=== PATIENT | female | born 1955 | race Caucasian/White ===

== ENCOUNTER → 2020-10-19 12:19 | Outpatient (BNVA) | payer OTHER, SELFPAY | PROVIDERS: PCP Family Medicine; Visit Provider Family Medicine Adult Medicine | DX: M54.16 Radiculopathy, lumbar region (principal) | CPT/HCPCS: 99212 ==

== ENCOUNTER → 2021-01-18 09:33 | Outpatient (BNVA) | payer MEDICARE, SELFPAY | PROVIDERS: PCP Family Medicine; Referring Provider Family Medicine; Visit Provider Family Medicine Adult Medicine | DX: M54.16 Radiculopathy, lumbar region (principal); Z79.899 Other long term (current) drug therapy | CPT/HCPCS: 99212 ==

== ENCOUNTER → 2021-03-15 08:18 | Outpatient (BNVA) | payer MEDICARE, SELFPAY | PROVIDERS: PCP Family Medicine; Visit Provider Family Medicine Adult Medicine | DX: M54.16 Radiculopathy, lumbar region (principal) | CPT/HCPCS: Q3014 ==

== ENCOUNTER → 2021-03-26 13:35 | Outpatient (BNVA) | payer MEDICARE, SELFPAY | PROVIDERS: PCP Family Medicine; Visit Provider Anesthesiology | DX: M54.5 Low back pain (principal) | CPT/HCPCS: 99212 ==

== ENCOUNTER → 2021-05-15 08:00 | Outpatient (BNVA) | payer MEDICARE, SELFPAY | PROVIDERS: PCP Family Medicine; Visit Provider Family Medicine Adult Medicine | DX: M54.16 Radiculopathy, lumbar region (principal) | CPT/HCPCS: 99212 ==

== ENCOUNTER 2021-05-29 05:46 | Outpatient (REF) | payer MEDICARE, SELFPAY ==
--- NOTE | ~2021-05-29 | FL_ITS ---
EXAMINATION: XR FLUOROSCOPY WITH IMAGES CLINICAL INFORMATION: Low back pain COMPARISON: None. TECHNIQUE: Fluoroscopy performed by Bing Webb. Fluoroscopy time: 0.9 minutes DAP: 6.02 Gycm2 Images: 9 FINDINGS: Number needles positioned along the posterior iliac crest with contrast opacifying the soft tissues. No gross bony abnormality seen. FL/FL guidance in treatment room IMPRESSION: Fluoroscopy was provided to Bing Webb for pain management.
== END 2021-05-29 05:47 | disposition home or self-care (01) ==
LOC: HO.RADIR 05:46
PROVIDERS: Visit Provider Anesthesiology
DX: M54.5 Low back pain (principal)
CPT/HCPCS: 64450; Q9967

== ENCOUNTER 2021-06-12 09:50 | Outpatient (REF) | payer MEDICARE, SELFPAY ==
[2021-06-12 12:09] LABS: MANUAL DIFF FLAG NO
[2021-06-12 12:12] LABS: Basophils Absolute Auto 0.1 X10*3/uL (0.0-0.2); Basophils Percent Auto 0.7 % (0-2); Eosinophils Absolute Auto 0.2 X10*3/uL (0.0-0.4); Eosinophils Percent Auto 2.7 % (0-4); Hemoglobin 13.1 g/dl (12.0-16.0); Imm Gran Abs Auto 0.02 X10*3/uL (0.00-0.03); Imm Gran Pct Auto 0.3 % (0.0-0.4); Lymphocytes Absolute Auto 2.6 X10*3/uL (1.2-4.9); Lymphocytes Percent Auto 38.1 % (20-40); Mean Corpuscular Hemoglobin 31.3 pg (27.0-33.0); Mean Corpuscular Volume 97.9 fL (80-98); Mean Platelet Volume 11.1 fL (9.4-12.3); Monocytes Absolute Auto 0.6 X10*3/uL (0.1-1.2); Monocytes Percent Auto 9.1 % (2-11); Neutrophils Absolute Auto 3.3 X10*3/uL (2.0-8.3); Neutrophils Percent Auto 49.1 % (45-73); Platelet Count 236 X10*3/uL (160-400); Red Blood Count 4.19 X10*6/uL (4.20-5.50); Red Cell Distribution Width 14.7 % (11.0-16.0); White Blood Count 6.8 X10*3/uL (4.8-10.8)
[2021-06-12 12:30] LABS: Alanine Aminotransferase 15 U/L (0-31); Albumin Level 4.3 g/dL (3.5-5.0); Alkaline Phosphatase 80 U/L (39-117); Anion Gap 12 (12-20); Aspartate Amino Transferase 20 U/L (5-31); Bilirubin Total 0.4 mg/dL (0.0-1.0); Blood Urea Nitrogen 24 mg/dL (9-16); Calcium 9.6 mg/dL (8.4-10.2); Carbon Dioxide 30 mmol/L (22-29); Chloride 105 mmol/L (96-108); Cholesterol 209 mg/dL; Estimated Glomerular Filt Rate 41; Glucose Fasting 101 mg/dL (60-99); HDL Cholesterol 68 mg/dL; LDL Cholesterol Calculated 121 mg/dl; Potassium 4.1 mmol/L (3.3-5.1); Sodium 143 mmol/L (135-145); Total Protein 6.6 g/dL (6.5-8.0); Triglycerides 102 mg/dL
[2021-06-12 12:52] LABS: Thyroid Stimulating Hormone 13.35 uIU/mL (0.32-4.0)
== END 2021-06-12 09:51 | disposition home or self-care (01) ==
LOC: HO.LAB 09:50
PROVIDERS: PCP Family Medicine; Referring Provider Family Medicine; Visit Provider Nurse Practitioner Family
DX: Z00.00 Encounter for general adult medical examination without abnormal findings (principal); M54.5 Low back pain; G89.4 Chronic pain syndrome; E03.9 Hypothyroidism, unspecified; K46.9 Unspecified abdominal hernia without obstruction or gangrene; Z79.899 Other long term (current) drug therapy; Z79.891 Long term (current) use of opiate analgesic; Z45.42 Encounter for adjustment and management of neurostimulator
CPT/HCPCS: 36415; 80053; 80061; 84443; 85025; 99212

== ENCOUNTER 2021-06-15 08:28 | Outpatient (REF) | payer MEDICARE, SELFPAY ==
--- NOTE | ~2021-06-15 | US_ITS ---
EXAMINATION: US ABDOMEN LIMITED CLINICAL INFORMATION: Unspecified abdominal hernia without obstruction. COMPARISON: None TECHNIQUE: Real-time imaging of the abdominal wall of the left lower quadrant. FINDINGS: There is a hypoechoic area seen measuring 1.5 x 0.5 x 1 cm in transverse AP and longitudinal dimension probably representing a small hernia. The neck measures 4 mm. No peristalsing bowel is seen and this probably contains fat. US/US abdomen limited IMPRESSION: Probable left lower quadrant abdominal wall hernia seen.
== END 2021-06-15 08:29 | disposition home or self-care (01) ==
LOC: HO.US 08:28
PROVIDERS: Visit Provider Family Medicine
DX: K46.9 Unspecified abdominal hernia without obstruction or gangrene (principal)
CPT/HCPCS: 76705

== ENCOUNTER → 2021-06-21 13:21 | Outpatient (BNVA) | payer MEDICARE, SELFPAY | PROVIDERS: PCP Family Medicine; Referring Provider Family Medicine; Visit Provider Surgery | DX: K43.2 Incisional hernia without obstruction or gangrene (principal) | CPT/HCPCS: 99202 ==

== ENCOUNTER → 2021-07-10 11:31 | Outpatient (BNVA) | payer MEDICARE, SELFPAY | PROVIDERS: PCP Family Medicine; Visit Provider Family Medicine Adult Medicine | DX: M54.16 Radiculopathy, lumbar region (principal); Z79.891 Long term (current) use of opiate analgesic | CPT/HCPCS: 99212 ==

== ENCOUNTER 2021-07-16 05:55 | Day surgery (SDC) | payer MEDICARE, SELFPAY ==
--- NOTE | 2021-07-05 | ECG_ITS ---
Test Reason : CAD PACER SSS Blood Pressure : / mmHG Vent. Rate : 080 BPM Atrial Rate : 080 BPM P-R Int : 158 ms QRS Dur : 092 ms QT Int : 408 ms P-R-T Axes : 072 -14 021 degrees QTc Int : 470 ms Atrial-paced rhythm Abnormal ECG No previous ECGs available Referred By: Maia Tellez Electronically Signed By:BIANCA ROMERO
[2021-07-05 12:05] VITALS: BP 144/67; PULSE 88; RESP 20; O2SAT 95; BMI 35.5
--- NOTE | 2021-07-05 12:44 | HO.ANESPROP2 ---
Documented by User: Maia Tellez NP 07/13/21 08:30 HPI - Anesthesia Eval Consult details Narrative: 65yo F for Left Lower Abdomen Incisional Hernia Repair Routine cardiology visit 08/2020 stable Pacer in situ for SSS - battery change 08/2020 Cystostomy in situ d/t bladder CA Hands and feet swollen early June d/t med rx (belbuca). Improved when reverted to Suboxone for low back pain. Suboxone daily - Currently on 20mg daily. Will contact Dr Barclay regarding plan to wean to 8mg daily preop Spinal stim in situ, but not functioning. Routine cardiac visit 08/2020, stable for 1 year f/u. Pt without c/o CP/SOB at [facility]. Appears euvolemic. Lungs clear. Minimal swelling in feet d/t belbuca rxn improved from earlier this month. h/o of DVT but no anticoag required for years No record of [place]CHO [place] [facility] [place] or [facility] Case reviewed with Dr Rachel HUBER Active Problems Active Problems: All Active Problems (Updated 07/05/21 @ 12:40 by Leanne Kitchen RN) Left lumbar radiculopathy (Acute) Allergic reaction (Acute) Depression with anxiety (Acute) Essential hypertension (Acute) Right ankle pain (Acute) H/O: CVA (cerebrovascular accident) (Acute) Factor V Leiden (Acute) H/O deep venous thrombosis (Acute) H/O: CVA (cerebrovascular accident) (Acute) History of myocardial infarction (Acute) CAD (coronary artery disease) (Acute) H/O carcinoma of bladder (Acute) Bradycardia (Acute) Artificial pacemaker (Acute) Frequent falls (Acute) Hernia (Acute) Infection of stoma of digestive tract (Acute) Colostomy care (Acute) Battery end of life of spinal cord stimulator (Acute) Incisional hernia (Acute) Hypothyroid (Acute) Low back pain (Acute) Past Medical History Medical History CAD (coronary artery disease) CHF (congestive heart failure) COVID-19 vaccine series completed CVA (cerebral vascular accident) Depression DVT (deep venous thrombosis) Elevated cholesterol Factor V Leiden History of postoperative nausea and vomiting HTN (hypertension) Hx of bladder cancer Hx of sick sinus syndrome Hypothyroid Ileostomy, has currently Left lumbar radiculopathy Low back pain Lumbago with sciatica, left side Family History Family history of problems with anesthesia: No Surgical History Surgical History Cardiac pacemaker History of nephrectomy, left Hx of total cystectomy S/P insertion of spinal cord stimulator History of Problems with Anesthesia: Yes (PONV) Social History Social History Household Members Other:: alone Housing: Apartment Are you a primary hospice care consultant to a significant other at home: No Do you presently have visiting nurse or other home services: Yes (homemaker twice/week) Alcohol intake: never Patient Tobacco Use Status: Never used Tobacco Use of substances other than those prescribed or required for medical reasons: No Substance Use Type Other:: taking suboxone tablet daily for pain control Have you been hit, kicked, punched, or otherwise hurt by someone within the past year? If so, by whom?: No Are you DNR?: Yes Advance Directives Information Provided: Yes (states is daughter) Advance Directives on File: No Recently lost weight without trying: No Eating poorly because of decreased appetite: No Nutrition Risks: No Nutritional Risk Poor oral hygiene: No Current occupational status: retired Narrative Narrative: No recent illness. No CP/SOB with limited activity d/t back pain. Meds Allergies Allergy/AdvReac Type Severity Reaction Status Date / Time almond Allergy Intermediate swollen Verified 07/16/21 06:59 throat buprenorphine [From Belbuca] Allergy Intermediate pain/swelling Verified 07/16/21 06:59 feet/ankles(took from 06/25/21 to 07/03/21) cephalexin [Keflex] Allergy Intermediate hives Verified 07/16/21 06:59 morphine Allergy Intermediate Vomiting Verified 07/16/21 06:59 silk Allergy Intermediate Rash Verified 07/16/21 06:59 Penicillins AdvReac Intermediate Nausea Verified 07/16/21 06:59 Home Medications Medication Instructions Recorded Confirmed Last Taken Type cyclosporine 0.05 % eye drops in a 1 drp OPHTHALMIC (EYE) BID 08/19/20 07/10/21 Unknown History dropperette naloxone 4 mg/actuation nasal 4 mg INTRANASAL ONCE PRN 07/04/21 07/10/21 Unknown History spray (Narcan) buprenorphine 8 mg-naloxone 2 mg 0.5 tab SUBLINGUAL QPM 08/19/21 08/24/21 08/28/21 History sublingual tablet buprenorphine 8 mg-naloxone 2 mg 1 tab SUBLINGUAL BID 07/05/21 07/10/21 Unknown History sublingual tablet Exam Exam Date and Time: July 05, 2021 1244 Height,Weight and Vital Signs: Height 5 ft 7 in Weight 103 kg Last Vital Signs Pulse 88 07/05/21 12:05 Resp 20 07/05/21 12:05 BP 144/67 H 07/05/21 12:05 Pulse Ox 95 07/05/21 12:05 Pertinent Lab Results Pertinent Lab Results: Laboratory Tests 06/12/21 06/12/21 11:52 11:52 WBC 6.8 Hgb 13.1 Hct 41.0 Plt Count 236 Sodium 143 Potassium 4.1 Chloride 105 Carbon Dioxide 30 H BUN 24 H Creatinine 1.30 Narrative Narrative: EKG 07/05/21 Vent. Rate : 080 BPM ? ? Atrial Rate : 080 BPM ?? P-R Int : 158 ms? QRS Dur : 092 ms ? ? QT Int : 408 ms ? ? ? P-R-T Axes : 072 -14 021 degrees ?? QTc Int : 470 ms ? Atrial-paced rhythm Abnormal ECG No previous ECGs available Pacer Interr 05/2021 Medtronic AAIR-DDDR 70/120 bmp APaced 73.3% VPaced 0% Battery life 12.9years Device functioning appropriately Airway Mallampati Class: I (Small mouth) TM Dist: >3cm Neck ROM: Full Loose/Missing/Broken Teeth: No Heart: RRR, L chest pacer Lungs: CTAB Assessment and Plan Assessment Anesthesia Assessment: Anesthesia Plan Discussed and PAT Visit Final Anesthetic Review Family History of Problems with Anesthesia: No History of Problems with Anesthesia: Yes (PONV) Documented by User: Nayely Sethi MD 07/16/21 07:18 [facility] Past Medical History Medical History CAD (coronary artery disease) CHF (congestive heart failure) COVID-19 vaccine series completed CVA (cerebral vascular accident) Depression DVT (deep venous thrombosis) Elevated cholesterol Factor V Leiden History of postoperative nausea and vomiting HTN (hypertension) Hx of bladder cancer Hx of sick sinus syndrome Hypothyroid Ileostomy, has currently Left lumbar radiculopathy Low back pain Lumbago with sciatica, left side Surgical History Surgical History Cardiac pacemaker History of nephrectomy, left Hx of total cystectomy S/P insertion of spinal cord stimulator Social History Social History Household Members Other:: alone Housing: Apartment Are you a primary hospice care consultant to a significant other at home: No Do you presently have visiting nurse or other home services: Yes (homemaker twice/week) Alcohol intake: never Patient Tobacco Use Status: Never used Tobacco Use of substances other than those prescribed or required for medical reasons: No Substance Use Type Other:: taking suboxone tablet daily for pain control Have you been hit, kicked, punched, or otherwise hurt by someone within the past year? If so, by whom?: No Are you DNR?: Yes Advance Directives Information Provided: Yes (states is daughter) Advance Directives on File: No Recently lost weight without trying: No Eating poorly because of decreased appetite: No Nutrition Risks: No Nutritional Risk Poor oral hygiene: No Current occupational status: retired Meds Allergies Allergy/AdvReac Type Severity Reaction Status Date / Time almond Allergy Intermediate swollen Verified 07/16/21 06:59 throat buprenorphine [From Belbuca] Allergy Intermediate pain/swelling Verified 07/16/21 06:59 feet/ankles(took from 06/25/21 to 07/03/21) cephalexin [Keflex] Allergy Intermediate hives Verified 07/16/21 06:59 morphine Allergy Intermediate Vomiting Verified 07/16/21 06:59 silk Allergy Intermediate Rash Verified 07/16/21 06:59 Penicillins AdvReac Intermediate Nausea Verified 07/16/21 06:59 Home Medications Medication Instructions Recorded Confirmed Last Taken Type cyclosporine 0.05 % eye drops in a 1 drp OPHTHALMIC (EYE) BID 08/19/20 07/10/21 Unknown History dropperette naloxone 4 mg/actuation nasal 4 mg INTRANASAL ONCE PRN 07/04/21 07/10/21 Unknown History spray (Narcan) buprenorphine 8 mg-naloxone 2 mg 0.5 tab SUBLINGUAL QPM 07/05/21 07/10/21 07/14/21 History sublingual tablet buprenorphine 8 mg-naloxone 2 mg 1 tab SUBLINGUAL BID 07/05/21 07/10/21 Unknown History sublingual tablet Exam Airway Mallampati Class: II (Small mouth) Assessment and Plan Final Anesthetic Review NPO: Yes ASA Class: III Final Preanesthetic Review: No Changes in Pt Med Stat, Meds/Allgs Chart Reviewed and Consent Obtained/Reviewed Patient Risk: Intermediate Procedure Risk: Intermediate Anesthetic Plan Anesthetic Plan: GA Disposition: Standard PACU
[2021-07-16] VITALS (15 sets, daily range): BP systolic 94–162; BP diastolic 54–92; PULSE 70–78; RESP 16–20; TEMP 36.7–37.2; O2SAT 91–96
[2021-07-16] MEDS: Scopolamine 1.5 MG PATCH.TD.3 TRANSDERMA (06:24)
[2021-07-16] MEDS: vancomycin HCL 1,000 MG in 0.9 % Sodium Chloride 250 ML 270 MG IV (06:50)
[2021-07-16] MEDS: Lactated Ringers 1,000 ML 100 ML IVCONT (06:57)
--- NOTE | 2021-07-16 08:53 | MHC.SHP ---
Pre-Procedural Eval Section A Date of Service: 07/16/21 The patient is an INPATIENT: No Changes since office visit: Yes Patient answered all questions; No Cold of Flu in the past 2 weeks, No New Medical Problems and No Changes in Medication Section B Chief Complaint: Incisional Hernia Allergies: Allergies Allergy/AdvReac Type Severity Reaction Status Date / Time almond Allergy Intermediate swollen Verified 07/16/21 06:59 throat buprenorphine [From Belbuca] Allergy Intermediate pain/swelling Verified 07/16/21 06:59 feet/ankles(took from 06/25/21 to 07/03/21) cephalexin [Keflex] Allergy Intermediate hives Verified 07/16/21 06:59 morphine Allergy Intermediate Vomiting Verified 07/16/21 06:59 silk Allergy Intermediate Rash Verified 07/16/21 06:59 Penicillins AdvReac Intermediate Nausea Verified 07/16/21 06:59 Plan Diagnosis/Plan: Unchanged I have reviewed the history and physical and performed a pertinent physical examination on my patient. No changes have occurred unless specified.
--- NOTE | 2021-07-16 08:54 | W.PM.OPN ---
Operative Note Operative Note Date of Service: 07/16/21 Narrative: Preoperative diagnosis: Incisional hernia left lower quadrant Postoperative diagnosis: Same Procedure: Repair of incisional hernia left lower quadrant with mesh Surgeon: Hermelindo Weaver MD Staff Anesthesiologist: Yarelis Gill PA-C Anesthesia: General ET Indications for procedure: 65-year-old male patient presenting with a previous urostomy in the left lower quadrant now with a lump in the left lower quadrant suggestive of an incisional hernia. The hernia increases in size with lifting and reduces with light pressure. Operative findings: Incisional hernia left lower quadrant containing omental fat Specimen: Lipoma from hernia sac Estimated blood loss: 5 mL Complications: None Procedure details: Patient was brought to the OR placed in a supine position. After administering general anesthesia the patient's abdomen was prepped with ChloraPrep and draped in a sterile fashion. A surgical time-out was called the consent confirmed. Patient received preoperative antibiotics and Venodyne boots were in place. Local anesthesia consisting of 0.25% Sensorcaine with epinephrine was then infiltrated in the left lower quadrant and transverse fashion. Transverse incision was then created with a scalpel carried out through subcutaneous tissue. Hernia sac was identified dissected down past the external and internal oblique muscles. Hernia defect was noted laterally as well. The sac was dissected down to the preperitoneal space. The lipoma within the hernia sac was excised and the contents reduced. The preperitoneal space was then created with a combination of blunt and electrocautery dissection. An 8 cm round Ventralex mesh was then obtained. This was placed in the preperitoneal space and secured in 4 quadrants using a 1. Tycron suture. Fascia was then closed over the mesh using a running 0 Polysorb suture in 2 layers to include the internal oblique and external oblique fascia is. Local anesthesia was then infiltrated in the muscle and subcutaneous tissue. Wounds were irrigated with saline solution and suctioned dry. Lidia's fascia was reapproximated using interrupted 3-0 Polysorb sutures. Dermis was then reapproximated using interrupted 3-0 Polysorb sutures. Skin was closed using a running subcuticular 4-0 Polysorb suture. Steri-Strips 2 x 2 gauze and Tegaderm were then applied. The patient tolerated the procedure well. Sponge, instrument, and needle counts reported as correct. The patient was transferred to PACU in stable condition.
[2021-07-16] MEDS: oxyCODONE HCl Immed Release 5 MG TABLET PO (09:25)
[2021-07-16] MEDS: fentaNYL citrate/PF 100 MCG/2 ML VIAL 50 MCG IVPUSH ×4 (09:27→09:55)
[2021-07-16] MEDS: Ketorolac Tromethamine 15 MG/ML VIAL IVPUSH (09:33)
== END 2021-07-16 11:15 | disposition home or self-care (01) ==
PROVIDERS: PCP Family Medicine; Visit Provider Surgery
PROC: (CPT 49560; principal; 2021-07-16 07:30)
DX: K43.2 Incisional hernia without obstruction or gangrene (principal); D17.5 Benign lipomatous neoplasm of intra-abdominal organs; I69.14 Monoplegia of lower limb following nontraumatic intracerebral hemorrhage; I69.151 Hemiplegia and hemiparesis following nontraumatic intracerebral hemorrhage affecting right dominant side; I50.9 Heart failure, unspecified; Z95.0 Presence of cardiac pacemaker; I11.0 Hypertensive heart disease with heart failure; Z86.718 Personal history of other venous thrombosis and embolism; Z85.51 Personal history of malignant neoplasm of bladder; Z93.2 Ileostomy status; Z79.899 Other long term (current) drug therapy; Z88.0 Allergy status to penicillin; Z88.1 Allergy status to other antibiotic agents; Z88.8 Allergy status to other drugs, medicaments and biological substances
CPT/HCPCS: 49560; 49568; 88304; 93005; C1781; J0131; J1100; J1885; J2250; J2405; J3010; J3370

== ENCOUNTER → 2021-07-24 10:14 | Outpatient (BNVA) | payer MEDICARE, SELFPAY | PROVIDERS: PCP Family Medicine; Referring Provider Family Medicine; Visit Provider Surgery | DX: Z48.815 Encounter for surgical aftercare following surgery on the digestive system (principal); Z87.19 Personal history of other diseases of the digestive system | CPT/HCPCS: 99212 ==

== ENCOUNTER 2021-07-25 10:02 | Outpatient (REF) | payer MEDICARE, SELFPAY ==
[2021-07-25 13:55] LABS: Alanine Aminotransferase 12 U/L (0-31); Albumin Level 4.4 g/dL (3.5-5.0); Alkaline Phosphatase 93 U/L (39-117); Anion Gap 14 (12-20); Aspartate Amino Transferase 13 U/L (5-31); Bilirubin Total 0.5 mg/dL (0.0-1.0); Blood Urea Nitrogen 31 mg/dL (9-16); Calcium 10.2 mg/dL (8.4-10.2); Carbon Dioxide 29 mmol/L (22-29); Chloride 105 mmol/L (96-108); Estimated Glomerular Filt Rate 33; Glucose Fasting 109 mg/dL (60-99); Potassium 4.3 mmol/L (3.3-5.1); Sodium 144 mmol/L (135-145); Total Protein 6.8 g/dL (6.5-8.0)
[2021-07-25 14:17] LABS: Free T4 (Free Thyroxine) 0.92 ng/dL (0.71-1.85)
== END 2021-07-25 10:03 | disposition home or self-care (01) ==
LOC: HO.WFDLDS 10:02
PROVIDERS: Visit Provider Family Medicine
DX: Z00.00 Encounter for general adult medical examination without abnormal findings (principal); E03.9 Hypothyroidism, unspecified
CPT/HCPCS: 36415; 80053; 84439

== ENCOUNTER → 2021-08-07 12:10 | Outpatient (BNVA) | payer MEDICARE, SELFPAY | PROVIDERS: PCP Family Medicine; Visit Provider Family Medicine Adult Medicine | DX: Z51.81 Encounter for therapeutic drug level monitoring (principal); M54.16 Radiculopathy, lumbar region | CPT/HCPCS: 99212 ==

== ENCOUNTER → 2021-08-30 09:55 | Outpatient (BNVA) | payer MEDICARE, SELFPAY | PROVIDERS: PCP Family Medicine; Referring Provider Family Medicine; Visit Provider Surgery | DX: K40.90 Unilateral inguinal hernia, without obstruction or gangrene, not specified as recurrent (principal); I25.10 Atherosclerotic heart disease of native coronary artery without angina pectoris; I11.0 Hypertensive heart disease with heart failure; I50.9 Heart failure, unspecified; E78.00 Pure hypercholesterolemia, unspecified; M54.42 Lumbago with sciatica, left side; D68.51 Activated protein C resistance; Z95.0 Presence of cardiac pacemaker; Z90.5 Acquired absence of kidney; Z88.0 Allergy status to penicillin; Z91.018 Allergy to other foods; T40.2X5A Adverse effect of other opioids, initial encounter; T40.495A Adverse effect of other synthetic narcotics, initial encounter; T36.1X5A Adverse effect of cephalosporins and other beta-lactam antibiotics, initial encounter; T36.0X5A Adverse effect of penicillins, initial encounter | CPT/HCPCS: 99212 ==

== ENCOUNTER → 2021-09-04 11:28 | Outpatient (BNVA) | payer MEDICARE, SELFPAY | PROVIDERS: PCP Family Medicine; Visit Provider Family Medicine Adult Medicine ==

== ENCOUNTER → 2021-09-26 08:59 | Outpatient (BNVA) | payer MEDICARE, SELFPAY | PROVIDERS: PCP Family Medicine; Visit Provider Anesthesiology | DX: G58.8 Other specified mononeuropathies (principal); M54.50 Low back pain, unspecified; Z96.82 Presence of neurostimulator; Z95.0 Presence of cardiac pacemaker; Z88.0 Allergy status to penicillin; Z88.6 Allergy status to analgesic agent; Z88.1 Allergy status to other antibiotic agents; Z91.018 Allergy to other foods; T78.49XA Other allergy, initial encounter | CPT/HCPCS: Q3014 ==

== ENCOUNTER → 2021-10-02 08:34 | Outpatient (BNVA) | payer MEDICARE, SELFPAY | PROVIDERS: Visit Provider Family Medicine Adult Medicine | DX: Z51.81 Encounter for therapeutic drug level monitoring (principal); M54.16 Radiculopathy, lumbar region | CPT/HCPCS: Q3014 ==

== ENCOUNTER 2021-10-04 11:20 | Outpatient (REF) | payer MEDICARE, SELFPAY ==
[2021-10-04 14:34] LABS: Alanine Aminotransferase 18 U/L (0-31); Albumin Level 4.2 g/dL (3.5-5.0); Alkaline Phosphatase 83 U/L (39-117); Anion Gap 14 (12-20); Aspartate Amino Transferase 20 U/L (5-31); Bilirubin Total 0.3 mg/dL (0.0-1.0); Blood Urea Nitrogen 24 mg/dL (9-16); Calcium 8.7 mg/dL (8.4-10.2); Carbon Dioxide 33 mmol/L (22-29); Chloride 103 mmol/L (96-108); Estimated Glomerular Filt Rate 34; Glucose Random 99 mg/dL (60-115); Potassium 3.5 mmol/L (3.3-5.1); Sodium 146 mmol/L (135-145); Total Protein 6.6 g/dL (6.5-8.0)
[2021-10-04 15:08] LABS: Free T4 (Free Thyroxine) < 0.40 ng/dL (0.71-1.85)
[2021-10-05 18:26] LABS: Triiodothyronine T3 Total <25 ng/dL (76-181)
== END 2021-10-04 11:21 | disposition home or self-care (01) ==
LOC: HO.WFDLDS 11:20
PROVIDERS: Visit Provider Family Medicine
DX: R79.89 Other specified abnormal findings of blood chemistry (principal); E03.9 Hypothyroidism, unspecified
CPT/HCPCS: 36415; 80053; 84439; 84480

== ENCOUNTER 2021-10-30 12:20 | Outpatient (REF) | payer MEDICARE, SELFPAY ==
[2021-10-30 14:27] LABS: Anion Gap 14 (12-20); Blood Urea Nitrogen 30 mg/dL (9-16); Calcium 9.9 mg/dL (8.4-10.2); Carbon Dioxide 30 mmol/L (22-29); Chloride 103 mmol/L (96-108); Estimated Glomerular Filt Rate 34; Glucose Random 97 mg/dL (60-115); Potassium 3.5 mmol/L (3.3-5.1); Sodium 143 mmol/L (135-145)
[2021-10-30 14:49] LABS: TSH reflex Free T4 76.75 uIU/mL (0.32-4.0)
[2021-10-30 15:43] LABS: Free T4 (Free Thyroxine) 0.51 ng/dL (0.71-1.85)
== END 2021-10-30 12:21 | disposition home or self-care (01) ==
LOC: HO.WFDLDS 12:20
PROVIDERS: Visit Provider Family Medicine
DX: Z00.00 Encounter for general adult medical examination without abnormal findings (principal); N19 Unspecified kidney failure
CPT/HCPCS: 36415; 80048; 84439; 84443

== ENCOUNTER 2021-11-14 11:11 | Day surgery (SDC) | payer MEDICARE, SELFPAY ==
--- NOTE | ~2021-11-14 | FL_ITS ---
EXAMINATION: XR FLUOROSCOPY WITH IMAGES CLINICAL INFORMATION: Pain. RFA. COMPARISON: Fluoroscopic spot views 05/29/2021 TECHNIQUE: Fluoroscopy performed by Dr. Justin. Fluoroscopy time: 1.8 minutes DAP: 7.66 Gycm2 Images: 12 FINDINGS: There are 2 needles/electrodes overlying the mid left superior iliac crest and on other images 2 needles/electrodes at the superior medial crest. There are mild degenerative spurring lower lumbar spine. FL/FL guidance in OR IMPRESSION: Fluoroscopy for pain management procedures.
[2021-11-14 12:36] VITALS: BP 130/51; PULSE 77; RESP 20; TEMP 36.4; O2SAT 93; BMI 31.1
--- NOTE | 2021-11-14 13:20 | PC.NURSE ---
Patient states she is a DNR code status. Patient does not have paperwork with her. Anesthesia made aware. Her HCP is her daughter, Birgit Rushing phone number [phone].
--- NOTE | 2021-11-14 14:04 | P.CONAN_ITS ---
REPLACED BY [facility] Active Problems Active Problems: All Active Problems (Updated 10/30/21 @ 12:13 by Hieu Jones) Subscapular pain (Acute) Renal failure (Acute) Elevated serum creatinine (Acute) Nerve entrapment syndrome (Acute) Adult general medical exam (Acute) Screening for osteoporosis (Acute) Screening for colon cancer (Acute) Breast cancer screening by mammogram (Acute) Left lumbar radiculopathy (Acute) Allergic reaction (Acute) Depression with anxiety (Acute) Essential hypertension (Acute) Right ankle pain (Acute) H/O: CVA (cerebrovascular accident) (Acute) Factor V Leiden (Acute) H/O deep venous thrombosis (Acute) H/O: CVA (cerebrovascular accident) (Acute) History of myocardial infarction (Acute) CAD (coronary artery disease) (Acute) H/O carcinoma of bladder (Acute) Bradycardia (Acute) Artificial pacemaker (Acute) Frequent falls (Acute) Hernia (Acute) Infection of stoma of digestive tract (Acute) Colostomy care (Acute) Battery end of life of spinal cord stimulator (Acute) Incisional hernia (Acute) Hypothyroid (Acute) Low back pain (Acute) Past Medical History Medical History (Updated 10/30/21 @ 12:13 by Hieu Jones) CAD (coronary artery disease) CHF (congestive heart failure) COVID-19 vaccine series completed CVA (cerebral vascular accident) Depression DVT (deep venous thrombosis) Elevated cholesterol Factor V Leiden History of postoperative nausea and vomiting HTN (hypertension) Hx of bladder cancer Hx of sick sinus syndrome Hypothyroid Ileostomy, has currently Left lumbar radiculopathy Low back pain Lumbago with sciatica, left side Nerve entrapment syndrome Family History Family history of problems with anesthesia: No Surgical History Surgical History Cardiac pacemaker History of nephrectomy, left Hx of total cystectomy S/P insertion of spinal cord stimulator History of Problems with Anesthesia: Yes (PONV) Social History Social History Household Members Other:: alone Housing: Apartment Are you a primary wound care physician to a significant other at home: No Do you presently have visiting nurse or other home services: Yes (homemaker twice/week) Alcohol intake: never Patient Tobacco Use Status: Never used Tobacco e-Cigarette/Vaping Use: Never Used Second Hand Smoke Exposure: No Use of substances other than those prescribed or required for medical reasons: No Are you DNR?: No Advance Directives: No Advance Directives Information Provided: No Current occupational status: retired Cognitive needs: No Hearing needs: No Vision needs: No Meds Allergies Allergy/AdvReac Type Severity Reaction Status Date / Time almond Allergy Intermediate swollen Verified 10/30/21 11:51 throat buprenorphine [From Belbuca] Allergy Intermediate pain/swelling Verified 10/30/21 11:51 feet/ankles(took from 06/25/21 to 07/03/21) cephalexin [Keflex] Allergy Intermediate hives Verified 10/30/21 11:51 morphine Allergy Intermediate Vomiting Verified 10/30/21 11:51 silk Allergy Intermediate Rash Verified 10/30/21 11:51 Penicillins AdvReac Intermediate Nausea Verified 10/30/21 11:51 Home Medications Medication Instructions Recorded Confirmed Last Taken Type cyclosporine 0.05 % eye drops in a 1 drp OPHTHALMIC (EYE) BID 08/19/20 10/02/21 Unknown History dropperette naloxone 4 mg/actuation nasal 4 mg INTRANASAL ONCE PRN 07/04/21 10/02/21 Unknown History spray (Narcan) duloxetine 60 mg capsule,delayed mg PO 07/25/21 10/02/21 Unknown History release latanoprost 0.005 % eye drops 1 drp OPHTHALMIC (EYE) BEDTIME 07/25/21 10/02/21 Unknown History pregabalin 50 mg capsule 50 mg PO BID 10/30/21 Unknown History Exam Exam Date and Time: November 14, 2021 1404 Height,Weight and Vital Signs: Height 5 ft 7 in Weight 90.265 kg Last Vital Signs Temp 97.6 F 11/14/21 12:36 Pulse 77 11/14/21 12:36 Resp 20 11/14/21 12:36 BP 130/51 L 11/14/21 12:36 Pulse Ox 93 11/14/21 12:36 Airway Mallampati Class: II TM Dist: <=3cm Neck ROM: Full Heart: ok, paced. Lungs: ok Assessment and Plan Final Anesthetic Review Family History of Problems with Anesthesia: No History of Problems with Anesthesia: Yes (PONV) NPO: Yes ASA Class: IV Final Preanesthetic Review: No Changes in Pt Med Stat, Meds/Allgs Chart Reviewed, Consent Obtained/Reviewed, Anes Risks/Benef Reviewed and DNR Form (If Appl.) Patient Risk: High Procedure Risk: Low Anesthetic Plan Anesthetic Plan: MAC: and Agree w/ Assess. and Plan Disposition: Standard PACU
[2021-11-14 16:20] VITALS: BP 118/91; PULSE 75; RESP 16; TEMP 36.6; O2SAT 91
[2021-11-14 16:35] VITALS: BP 120/64; PULSE 70; RESP 16; O2SAT 96
--- NOTE | 2021-11-14 16:41 | P.BOP_ITS ---
Brief Operative Note Date of Service: 11/14/21 Pre-op diagnosis: Cluneal neuropathy Post-op diagnosis: same Procedure: Cluneal nerve radiofrequency ablation Surgeon: Shiva Justin MD Anesthesia: MAC Was an On Site Construction Superintendent used for this Procedure?: No Estimated blood loss (mL): 5 Pathology: none sent Condition: stable Disposition: PACU
--- NOTE | 2021-11-14 16:41 | W.PM.OPN ---
Operative Note Operative Note Date of Service: 11/14/21 Narrative: Cooled Radiofrequency lesioning left superior and medial cluneal nerves After obtaining written consent, pre-procedure blood pressure and heart rate were stable and recorded in the nursing record. Standard monitors were applied. The patient was sedated and placed in the prone position. The left lumbar area was prepped with chloraprep and draped in sterile fashion. The skin over the target for each cluneal nerve along the edge of the iliac crest was anesthetized with 0.5% lidocaine. An 18 gauge radiofrequency cannula was advanced to each target site under fluoroscopic guidance. Bony contact was confirmed at each site, no paresthesias were elicited and aspiration was negative for heme and CSF. Impedences were verified under 600 ohms. Motor testing (2 Hz) confirmed needle placement at each site within the appropriate voltage thresholds. Each site was injected with 1 ml 2% preservative-free lidocaine. Radiofrequency lesioning was performed for 165 seconds at 80 deg Celcius tissue temperature. The needle was removed, skin cleansed and a sterile bandage was applied. The patient tolerated the procedure well and no complications were encountered. Following the procedure the patient's vital signs were stable. The patient was discharged home in good condition with post-procedural instructions. Time Out: Immediately prior to the procedure, the following was verbally confirmed that there is a signed consent form and that the correct patient, planned procedure, site and side are consistent with documentation and that necessary equipment and/or blood products are available prior to the start of the case. Complications: none EBL: 5 cc
--- NOTE | 2021-11-14 16:41 | MHC.SHP ---
Pre-Procedural Eval Section A Date of Service: 11/14/21 The patient is an INPATIENT: Yes Changes since office visit: Yes New Medical Problems and Yes Patient answered all questions The History & Physical has been completed within 30 days and I have reviewed it.: Yes Section B Chief Complaint: LOW BACK PAIN Relevant Family History (Specify if Yes): No Allergies: Allergies Allergy/AdvReac Type Severity Reaction Status Date / Time almond Allergy Intermediate swollen Verified 10/30/21 11:51 throat buprenorphine [From Belbuca] Allergy Intermediate pain/swelling Verified 10/30/21 11:51 feet/ankles(took from 06/25/21 to 07/03/21) cephalexin [Keflex] Allergy Intermediate hives Verified 10/30/21 11:51 morphine Allergy Intermediate Vomiting Verified 10/30/21 11:51 silk Allergy Intermediate Rash Verified 10/30/21 11:51 Penicillins AdvReac Intermediate Nausea Verified 10/30/21 11:51 Review of Systems Sugical H&P ROS: Yes, Specify: Neurological (untreated tremor) Plan Diagnosis/Plan: Unchanged I have reviewed the history and physical and performed a pertinent physical examination on my patient. No changes have occurred unless specified.
[2021-11-14 16:50] VITALS: BP 125/68; PULSE 72; RESP 18; O2SAT 95
== END 2021-11-14 17:04 | disposition home or self-care (01) ==
PROVIDERS: PCP Family Medicine; Visit Provider Internal Medicine
PROC: (CPT 64640; principal; 2021-11-14 13:10)
DX: M54.50 Low back pain, unspecified (principal); G58.9 Mononeuropathy, unspecified; Z96.82 Presence of neurostimulator; F32.9 Major depressive disorder, single episode, unspecified; I11.0 Hypertensive heart disease with heart failure; I50.9 Heart failure, unspecified; I25.10 Atherosclerotic heart disease of native coronary artery without angina pectoris; Z95.0 Presence of cardiac pacemaker; D68.51 Activated protein C resistance; E03.9 Hypothyroidism, unspecified; Z86.73 Personal history of transient ischemic attack (TIA), and cerebral infarction without residual deficits; Z86.718 Personal history of other venous thrombosis and embolism; Z85.51 Personal history of malignant neoplasm of bladder; Z90.6 Acquired absence of other parts of urinary tract; Z93.2 Ileostomy status; Z90.5 Acquired absence of kidney
CPT/HCPCS: 64640 ×2

== ENCOUNTER → 2021-12-18 09:52 | Outpatient (BNVA) | payer MEDICARE, SELFPAY | PROVIDERS: Visit Provider Nurse Practitioner Family | DX: M54.16 Radiculopathy, lumbar region (principal); G58.9 Mononeuropathy, unspecified; G89.4 Chronic pain syndrome; Z98.890 Other specified postprocedural states | CPT/HCPCS: 99212 ==

== ENCOUNTER 2021-12-27 12:53 | Outpatient (REF) | payer MEDICARE, SELFPAY ==
[2021-12-27 13:33] LABS: Basophils Percent Auto 0.4 % (0-2); Eosinophils Absolute Auto 0.1 X10*3/uL (0.0-0.4); Eosinophils Percent Auto 0.6 % (0-4); Hemoglobin 13.7 g/dl (12.0-16.0); Imm Gran Abs Auto 0.05 X10*3/uL (0.00-0.03); Imm Gran Pct Auto 0.5 % (0.0-0.4); Lymphocytes Absolute Auto 5.1 X10*3/uL (1.2-4.9); Lymphocytes Percent Auto 48.2 % (20-40); MANUAL DIFF FLAG SCAN; Mean Corpuscular HGB Conc 33.4 g/dl (31.0-35.0); Mean Corpuscular Hemoglobin 31.7 pg (27.0-33.0); Mean Corpuscular Volume 94.9 fL (80.0-98.0); Mean Platelet Volume 11.1 fL (9.4-12.3); Monocytes Absolute Auto 0.5 X10*3/uL (0.1-1.2); Neutrophils Absolute Auto 4.8 x10*3/uL (2.0-8.3); Neutrophils Percent Auto 45.3 % (45-73); Platelet Count 274 X10*3/uL (160-400); Red Blood Count 4.32 X10*6/uL (4.20-5.50); Red Cell Distribution Width 15.4 % (11.0-16.0); SCAN SMEAR FLAG 1; White Blood Count 10.7 X10*3/uL (4.8-10.8)
[2021-12-27 14:09] LABS: SLIDE REVIEW VERIFIED
[2021-12-27 14:20] LABS: Anion Gap 12 (12-20); Blood Urea Nitrogen 32 mg/dL (9-16); Calcium 9.9 mg/dL (8.4-10.2); Carbon Dioxide 27 mmol/L (22-29); Chloride 106 mmol/L (96-108); Estimated Glomerular Filt Rate 36; Glucose Random 106 mg/dL (60-115); Potassium 3.3 mmol/L (3.3-5.1); Sodium 142 mmol/L (135-145)
[2021-12-27 14:44] LABS: Free T4 (Free Thyroxine) 1.02 ng/dL (0.71-1.85); Thyroid Stimulating Hormone 0.59 uIU/mL (0.32-4.0)
[2021-12-29 02:32] LABS: Triiodothyronine T3 Total 81 ng/dL (76-181)
== END 2021-12-27 12:54 | disposition home or self-care (01) ==
LOC: HO.WFDLDS 12:53
PROVIDERS: Visit Provider Family Medicine
DX: Z00.00 Encounter for general adult medical examination without abnormal findings (principal); N19 Unspecified kidney failure; E03.9 Hypothyroidism, unspecified; R25.1 Tremor, unspecified
CPT/HCPCS: 36415; 80048; 84439; 84443; 84480; 85025

== ENCOUNTER → 2022-01-03 08:21 | Outpatient (BNVA) | payer MEDICARE, SELFPAY | PROVIDERS: PCP Family Medicine; Visit Provider Anesthesiology | DX: M54.16 Radiculopathy, lumbar region (principal); M54.50 Low back pain, unspecified; G58.9 Mononeuropathy, unspecified; G89.4 Chronic pain syndrome | CPT/HCPCS: 99212 ==